=== PATIENT | female | born 1975 | race Caucasian/White ===

== ENCOUNTER 2020-11-26 15:38 | Outpatient (CLI) | payer OTHER ==
[2020-11-26 16:40] LABS: MICROSCOPIC NOT IND
[2020-11-26 16:46] LABS: BASOPHILS % (AUTO) 1 % (0-1); EOSINOPHILS % (AUTO) 1 % (1-7); LYMPHOCYTES % (AUTO) 36 % (22-44); MEAN CORPUSCULAR HEMOGLOBIN 30.9 pg (27.0-34.8); MEAN CORPUSCULAR HGB CONC 34.2 g/dL (32.4-35.8); MEAN PLATELET VOLUME 9.3 fL (7.4-10.4); MONOCYTES % (AUTO) 6 % (2-9); NEUTROPHILS % (AUTO) 56 % (42-75); PLATELET COUNT 232 x10^3/uL (130-400); RED BLOOD COUNT 4.47 x10^6/uL (3.82-5.3); RED CELL DISTRIBUTION WIDTH 13.6 % (9.6-15.2)
== END 2020-11-26 23:59 | disposition home or self-care (01) ==
LOC: STAR 15:38
PROVIDERS: ATTEND Obstetrics & Gynecology
DX: Z01.812 Encounter for preprocedural laboratory examination (principal); R10.2 Pelvic and perineal pain; Z20.822 Contact with and (suspected) exposure to COVID-19
CPT/HCPCS: 36415; 81003; 84703; 85025; 87635

== ENCOUNTER 2020-11-30 06:51 | Inpatient (IN) | payer OTHER ==
[~2020-11-30] VITALS: Ht 160 cm; Wt 77.9 kg
[2020-11-30] MEDS ORDERED: LACTATED RINGERS 1,000 ML IV SCH (07:30)
[2020-11-30] MEDS ORDERED: CHLORHEXIDINE 15 ML UDC PO ONE (07:30)
[2020-11-30 07:51] LABS: HCG UR SG 1.019 (1.003-1.030)
[2020-11-30] MEDS ORDERED: BUPIVACAINE/PF 0.25% ONE (08:39)
[2020-11-30] MEDS ORDERED: EPINEPHRINE 1 MG/ML, 1ML ONE (08:40)
[2020-11-30] MEDS ORDERED: ACETAMINOPHEN 500 MG TABLET ONE (08:42)
[2020-11-30] MEDS ORDERED: MIDAZOLAM 1 MG/ML, 2ML ONE (08:44)
[2020-11-30] MEDS ORDERED: FENTANYL PF 250 MCG/5ML ONE (08:45)
[2020-11-30] MEDS ORDERED: ACETAMINOPHEN 500 MG TABLET PO ONE (09:00)
[2020-11-30] MEDS: LACTATED RINGERS 1,000 ML IV SCH ×2 (11:30→19:30)
[2020-11-30] MEDS ORDERED: hydrALAzine 20 MG/ML, 1ML IV PRN (11:30)
[2020-11-30] MEDS ORDERED: EPHEDRINE 50 MG/ML, 1ML IVPush PRN (11:30)
[2020-11-30] MEDS ORDERED: HYDROmorphone 1 MG/ML, 1ML INJ IVPush PRN (11:30)
[2020-11-30] MEDS ORDERED: PROMETHAZINE 12.5 MG SUPP PR PRN (11:30)
[2020-11-30] MEDS ORDERED: FENTANYL PF 100 MCG/2ML IV PRN (11:30)
[2020-11-30] MEDS ORDERED: ALBUTEROL SULFATE 2.5 MG/3 ML NPPB PRN (11:30)
[2020-11-30] MEDS ORDERED: MIDAZOLAM 1 MG/ML, 2ML IV PRN (11:30)
[2020-11-30] MEDS ORDERED: OXYcodone 5 MG/5 ML ORAL.SOL UDC PO PRN (11:30)
[2020-11-30] MEDS ORDERED: ZOLPIDEM 5MG TABLET PO PRN (11:30)
[2020-11-30] MEDS ORDERED: MEPERIDINE/PF 50 MG/ML IM PRN (11:30)
[2020-11-30] MEDS ORDERED: KETOROLAC 30 MG/1 ML IVPush PRN (11:30)
[2020-11-30] MEDS ORDERED: MEPERIDINE/PF 25MG/0.5ML IVPush PRN (11:30)
[2020-11-30] MEDS ORDERED: DIAZEPAM 5 MG/ML, 2ML IVPush PRN (11:30)
[2020-11-30] MEDS ORDERED: LABETALOL 5MG/ML, 20ML IV PRN (11:30)
[2020-11-30] MEDS ORDERED: DIPHENHYDRAMINE 50 MG/ML, 1ML IVPush PRN ×2 (11:30)
[2020-11-30] MEDS ORDERED: HYDROmorphone 2 MG/ML, 1ML IVPush PRN (11:30)
[2020-11-30] MEDS ORDERED: morphine SULFATE 10 MG/ML, 1ML IVPush PRN (11:30)
[2020-11-30] MEDS ORDERED: PROMETHAZINE 25 MG/ML, 1ML IVPush PRN (11:30)
[2020-11-30] MEDS ORDERED: ONDANSETRON 2MG/ML, 2ML IVPush PRN ×2 (11:30)
[2020-11-30] MEDS ORDERED: FENTANYL PF 100 MCG/2ML ONE (11:33)
[2020-11-30] MEDS ORDERED: OXYcodone 5 MG/5 ML ORAL.SOL UDC ONE (11:33)
[2020-11-30] MEDS ORDERED: MEPERIDINE/PF 25MG/ML,1ML ONE (11:53)
[2020-11-30] MEDS: OXYcodone/APAP 5/325MG TABLET PO PRN ×2 (13:39→17:53)
[2020-11-30] MEDS: IBUPROFEN 600 MG TABLET PO SCH ×2 (17:53→21:08)
[2020-11-30] MEDS: SIMETHICONE 80 MG CHEW TAB PO SCH ×2 (17:53→21:08)
[2020-11-30 20:52] VITALS: BP 102/57
[2020-11-30] MEDS: DOCUSATE 100 MG CAPSULE PO SCH (21:08)
[2020-12-01] VITALS (7 sets, daily range): BP systolic 93–151; BP diastolic 61–82
[2020-12-01] MEDS: LACTATED RINGERS 1,000 ML IV SCH ×3 (03:25→19:30)
[2020-12-01] MEDS: IBUPROFEN 600 MG TABLET PO SCH ×4 (06:13→20:49)
[2020-12-01] MEDS: SIMETHICONE 80 MG CHEW TAB PO SCH ×3 (09:17→20:49)
[2020-12-01] MEDS: DOCUSATE 100 MG CAPSULE PO SCH ×2 (09:17→20:49)
[2020-12-01] MEDS: OXYcodone/APAP 5/325MG TABLET PO PRN ×3 (09:18→19:56)
[2020-12-01] MEDS ORDERED: OXYC1TAB12 PO (13:40)
[2020-12-02] MEDS: OXYcodone/APAP 5/325MG TABLET PO PRN ×3 (00:10→16:33)
[2020-12-02 00:12] VITALS: BP 105/65
[2020-12-02] MEDS: LACTATED RINGERS 1,000 ML IV SCH ×2 (02:22→11:12)
[2020-12-02] MEDS: IBUPROFEN 600 MG TABLET PO SCH ×3 (06:05→16:33)
[2020-12-02 07:42] VITALS: BP 101/66
[2020-12-02] MEDS: DOCUSATE 100 MG CAPSULE PO SCH (09:00)
[2020-12-02] MEDS: SIMETHICONE 80 MG CHEW TAB PO SCH ×2 (10:04→16:33)
[2020-12-02 13:22] VITALS: BP 108/74
[2020-12-02] MEDS ORDERED: DOCU-131 PO (15:42)
[2020-12-02] MEDS ORDERED: IBUP-1222 PO (15:44)
[2020-12-02 16:34] VITALS: BP 107/73
== END 2020-12-02 16:59 | disposition home or self-care (01) | DRG 743 ==
LOC: OUT 06:51 → ORIP 11:12 → 4NE 17:13
PROVIDERS: ADMIT Obstetrics & Gynecology; ATTEND Obstetrics & Gynecology
PROC: 0UT90ZL Resection of Uterus, Supracervical, Open Approach (ICD-10-PCS; principal; 2020-12-02)
PROC: 0UT70ZZ Resection of Bilateral Fallopian Tubes, Open Approach (ICD-10-PCS; 2020-12-02)
DX: D25.9 Leiomyoma of uterus, unspecified (principal); R10.2 Pelvic and perineal pain
CPT/HCPCS: 36415; 81025; 85014; 85018; 88307; G0378; J0171; J1885; J2175; J2250; J2405; J3010; J7120